=== PATIENT | female | born 1955 | race Caucasian/White ===

== ENCOUNTER 2017-05-07 10:33 | Emergency (ER) | payer BC ==
[2017-05-07 10:52] VITALS: BP 143/89
--- NOTE | 2017-05-07 11:55 | RAD ---
INDICATION: Left hand and wrist pain after a fall COMPARISON: None. TECHNIQUE: 4 views of the left hand and 3 views of the left breast were obtained. FINDINGS: The adequately corticated bones are in normal alignment. No significant focal osseous abnormality or fracture is seen. Joint spaces appear maintained. IMPRESSION: No radiographically apparent fracture or dislocation involving the left hand or wrist. If the patient's symptoms persist, follow-up imaging is recommended.
--- NOTE | 2017-05-07 12:11 | UC ---
Steve Louis Gabriel, scribed for Hoang Tejeda MD on 05/07/17 at 1113 . Upper Extremity HPI - HPI Summary HPI Summary: This patient is a 61 year old F presenting to [facility] s/p fall that occurred on . Pt was walking her dog and it pulled her causing her to fall and landing on her left wrist. She is now having left wrist and hand pain, additionally her ring finger is swollen and she is unable to get her ring off. The patient rates the pain 7/10 in severity. - History of Current Complaint Chief Complaint: UCUpperExtremity Stated Complaint: HAND INJURY Time Seen by Provider: 05/07/17 11:05 Hx Obtained From: Patient Onset/Duration: Lasting Days, Still Present Severity Initially: Severe Severity Currently: Severe Pain Intensity: 7 Pain Scale Used: 0-10 Numeric Associated Signs And Symptoms: Positive: Swelling, Other - pain - Allergies/Home Medications Allergies/Adverse Reactions: Allergies Allergy/AdvReac Type Severity Reaction Status Date / Time No Known Allergies Allergy Verified 05/07/17 10:52 Home Medications: Home Medications Aspirin 1 tab PO DAILY 05/07/17 [History Confirmed 05/07/17] PMH/Surg Hx/FS Hx/Imm Hx Other Cardiovascular History: blood clot Other History Of: Negative For: HIV, Hepatitis B - Surgical History Surgical History: Yes Surgery Procedure, Year, and Place: hysterrectomy; vein stripping left leg (x2, once unsuccesfully) - Family History Known Family History: Negative: Hypertension, Renal Disease, Respiratory Disease, Seizure Disorder - Social History Alcohol Use: Occasionally Substance Use Type: None Smoking Status (MU): Current Some Day Smoker Amount Used/How Often: 10 cigds per week - Immunization History Most Recent Influenza Vaccination: Dec 2013 Most Recent Tetanus Shot: within past 2 yrs Review of Systems Constitutional: Negative - fever Musculoskeletal: Other: - pain and swelling at left hand All Other Systems Reviewed And Are Negative: Yes Physical Exam Triage Information Reviewed: Yes Vital Signs: Initial Vital Signs Temp 98.6 F 05/07/17 10:48 Pulse 60 05/07/17 10:48 Resp 20 05/07/17 10:48 BP 143/89 05/07/17 10:48 Pulse Ox 98 05/07/17 10:48 Vital Signs Reviewed: Yes - Additional Comments General: well-appearing, no pain distress Skin: warm, color reflects adequate perfusion, dry Head: normal Eyes: EOMI, LAUREN ENT: normal Neck: supple, nontender Respiratory: CTA, breath sounds present Cardiovascular: RRR Abdomen: soft, nontender Bowel: present Musculoskeletal: strength/ROM intact. TTP at left wrist ulnar aspect on 4th and 5th metacarpals with swelling Neurological: normal, sensory/motor intact, A&O x3 Psychological: affect/mood appropriate Diagnostics - Radiology wrist xray Radiology Interpretation Completed By: Radiologist - No radiographically apparent fracture or dislocation involving the left hand or wrist. If the patient's symptoms persist, follow-up imaging is recommended. Dr. Tejeda has reviewed this report. hand xray Radiology Interpretation Completed By: Radiologist - No radiographically apparent fracture or dislocation involving the left hand or wrist. If the patient's symptoms persist, follow-up imaging is recommended. Dr. Tejeda has reviewed this report. Upper Extremity Course/Dx - Course Course Of Treatment: BP noted and advised to follow up with PCP. LEFT INDEX FINGER RING REMOVED WITH RING CUTTER BY NURSING - Differential Dx/Diagnosis Provider Diagnoses: LEFT WRIST AND HAND SPRAIN. HTN Discharge - Discharge Plan Condition: Stable Disposition: HOME Patient Education Materials: Splint Care (ED), Hand Sprain (ED), Wrist Sprain ( ED) Referrals: Aubree Love [Primary Care Provider] - Additional Instructions: FOLLOW UP WITH YOUR DOCTOR IF NOT COMPLETELY IMPROVED. GET RECHECKED FOR ANY WORSENING OF YOUR CONDITION OR QUESTIONS OR CONCERNS. Your blood pressure was elevated during todays visit; please follow up with your primary care provider within a week for further evaluation. The documentation as recorded by the Steve jasso Gabriel accurately reflects the service I personally performed and the decisions made by me, Hoang Tejeda MD.
== END 2017-05-07 12:15 | disposition home or self-care (01) ==
LOC: UCEAST 10:33
DX: S63.502A Unspecified sprain of left wrist, initial encounter (principal); S63.92XA Sprain of unspecified part of left wrist and hand, initial encounter; W18.39XA Other fall on same level, initial encounter; Y93.K1 Activity, walking an animal; Y92.9 Unspecified place or not applicable; Z86.718 Personal history of other venous thrombosis and embolism; Z79.82 Long term (current) use of aspirin; Z72.0 Tobacco use
CPT/HCPCS: 99212; G0463

== ENCOUNTER 2018-02-06 13:54 | Emergency (ER) | payer BC ==
[2018-02-06 14:21] VITALS: BP 124/83
--- NOTE | 2018-02-06 14:59 | UC ---
Upper Extremity HPI - HPI Summary HPI Summary: 62-year-old female presents with bilateral wrist pain. States she was working her well, the lid of the well was caught the wind and blown onto her bilateral wrists. Pain is worse in the right wrist and is associated with some bruising. She also has a superficial skin tear to the dorsal right hand. Denies numbness or tingling. - History of Current Complaint Chief Complaint: UCUpperExtremity Stated Complaint: HAND INJURY Hx Obtained From: Patient Onset/Duration: Sudden Onset Severity Currently: Moderate Pain Intensity: 7 Character: Aching Aggravating Factor(s): Movement Alleviating Factor(s): Nothing Associated Signs And Symptoms: Positive: Swelling, Bruising. Negative: Weakness , Numbness/Tingling - Allergies/Home Medications Allergies/Adverse Reactions: Allergies Allergy/AdvReac Type Severity Reaction Status Date / Time No Known Allergies Allergy Verified 02/06/18 14:21 PMH/Surg Hx/FS Hx/Imm Hx Previously Healthy: Yes - Denies significant PMH Other History Of: Negative For: HIV, Hepatitis B - Surgical History Surgical History: Yes Surgery Procedure, Year, and Place: hysterrectomy; vein stripping left leg (x2, once unsuccesfully) - Family History Known Family History: Negative: Hypertension, Renal Disease, Respiratory Disease, Seizure Disorder - Social History Occupation: Works From/At Home Lives: With Family Alcohol Use: Occasionally Substance Use Type: None Smoking Status (MU): Current Some Day Smoker Amount Used/How Often: 10 cigds per week Household Exposure Type: Cigarettes - Immunization History Most Recent Influenza Vaccination: Dec 2013 Most Recent Tetanus Shot: within past 2 yrs Review of Systems All Other Systems Reviewed And Are Negative: Yes Skin: Positive: Bruising Motor: Negative: Weakness Neurovascular: Negative: Decreased Sensation Musculoskeletal: Positive: Other: - See HPI Is Patient Immunocompromised?: No Physical Exam Triage Information Reviewed: Yes Appearance: Well-Appearing, No Pain Distress, Well-Nourished Vital Signs: Initial Vital Signs Temp 98.2 F 02/06/18 14:17 Pulse 74 02/06/18 14:17 Resp 18 02/06/18 14:17 BP 124/83 02/06/18 14:17 Pulse Ox 100 02/06/18 14:17 Respiratory: Positive: Lungs clear, Normal breath sounds, No respiratory distress Cardiovascular: Positive: RRR, No Murmur, Pulses Normal, Brisk Capillary Refill Musculoskeletal: Positive: Strength Intact, ROM Intact, Other: - Mild tenderness mid 1st metacarpal right hand with ecchymosis and mild swelling. No gross deformity. Mild tenderness to distal left radius without erythema, ecchymosis, or swelling. Neurological: Positive: Alert, Other: - Sensation intact distally Skin: Positive: Significant Lesion(s) - See diagram Diagnostics - Radiology No standard instances Radiology Interpretation Completed By: Radiologist Summary of Radiographic Findings: Patient Name: GISSELLE ALMODOVAR Medical Record#: [id number]. Ordering Physician: Scotty Bautista NP Acct.#: [id number]. : 1955 Age: 62 Sex: F Location: [facility]. Exam Date: 1503 ADM Status: REG ER. Order Information: WRISTS BILATERAL. Accession Number: [id number]. CPT: 57283. Indication: Wrist pain. 3 views of the left wrist and 3 views of the right wrist are reviewed. The left wrist demonstrates no fracture or dislocation. No other bone or joint abnormality. is identified. The right wrist demonstrates no fracture or dislocation. No other bone or. joint abnormality is identified. IMPRESSION: No fracture of either wrist is noted. Upper Extremity Course/Dx - Course Course Of Treatment: 62 year old female with bilateral wrist pain after the lid on her well fell onto wrists. Right worse than left. On exam she had tenderness with ecchymosis and swelling over mid right 1st metacarpal without gross deformity, tenderness over distal left radius without ecchymosis, swelling, or gross deformity, and a superficial skin tear to dorsal right hand. X-ray negative for fracture. Recommend conservative treatment for bilateral wrist contusion. She is to follow up with PCP in 7 days if symptoms persistl. Reviewed wound care and warning symptoms with patient. Verbalizes unerstanding and agrees with POC. - Differential Dx/Diagnosis Differential Diagnosis/HQI/PQRI: Contusion, Fracture (Closed), Hematoma, Laceration Provider Diagnoses: Contusion bilateral wrists, skin tear dorsal right hand Discharge - Sign-Out/Discharge Documenting (check all that apply): Patient Departure All imaging exams completed and their final reports reviewed: Yes - Discharge Plan Condition: Stable Disposition: HOME Patient Education Materials: Contusion in Adults (ED) Referrals: Aubree Love [Primary Care Provider] - 7 Days (If symptoms persist.) Additional Instructions: The X-rays of your wrists showed no evidence of fracture. I suspect that you have a contusion (deep bruise) from the injury. Rest your arms as much as possible. Avoid strenuous activity or activity that causes pain. Apply ice to the affected area(s) for 15-20 minutes 3-4 times a day. Elevate your arm(s) to help reduce swelling. Use an over the counter pain medication such as acetaminophen (Tylenol) or ibuprofen (Advil, Motrin) according to directions as needed for pain. Gently clean the skin tear on the back of your right hand with soap and water, apply an antibiotic ointment, and cover with a dressing. Follow up with you primary care provider in 7 days if symptoms persist. Seek immediate medical attention if you develop fever greater than 100.5 F, have pain not managed with pain medication, have redness that spreads, increased swelling, develop numbness or tingling in hand(s) or fingers, or have any worsening of symptoms. - Billing Disposition and Condition Condition: STABLE Disposition: Home Images Hands: 1 - Superficial L-shaped skin tear with edges well approximated. No active bleeding. 2 - Ecchymosis
== END 2018-02-06 16:09 | disposition home or self-care (01) ==
LOC: UCEAST 13:54
DX: S60.212A Contusion of left wrist, initial encounter (principal); S60.211A Contusion of right wrist, initial encounter; S61.411A Laceration without foreign body of right hand, initial encounter; F17.210 Nicotine dependence, cigarettes, uncomplicated; W20.8XXA Other cause of strike by thrown, projected or falling object, initial encounter; Y93.89 Activity, other specified; Y92.9 Unspecified place or not applicable
CPT/HCPCS: 99211; G0463

== ENCOUNTER 2018-08-09 11:49 | Inpatient (IN) | payer BC ==
[2018-08-09] MEDS ORDERED: Morphine 4 MG/ML VIAL (1 ml) 4 MG/ML VIAL IV ONE (12:14)
--- NOTE | 2018-08-09 14:30 | ED ---
Lower Extremity - HPI Summary HPI Summary: 63-year-old female presents with left knee injury today. States that the dog hit her left knee and pushed on the knee. She has history of patellar dislocations. She denies any numbness to me. States felt a snap. She unable to place weight on the area. She denies any hip pain. No ankle pain. she has no medical conditions besides history of phlebitis after previous surgery. States she is in severe pain. - History of Current Complaint Chief Complaint: EDExtremityLower Stated Complaint: LEFT LEG INGURY PER PT Time Seen by Provider: 08/09/18 12:09 Pain Intensity: 8 - Allergies/Home Medications Allergies/Adverse Reactions: Allergies Allergy/AdvReac Type Severity Reaction Status Date / Time No Known Allergies Allergy Verified 08/09/18 11:56 Home Medications: Home Medications Jetmore-3 Fatty Acids/Fish Oil [Jetmore 3] 1 cap PO DAILY 08/09/18 [History Confirmed 08/09/18] PMH/Surg Hx/FS Hx/Imm Hx Endocrine/Hematology History: Denies: Hx Anticoagulant Therapy Respiratory History: Denies: Hx Asthma Musculoskeletal History: Denies: Hx Osteoporosis - Cancer History Hx Chemotherapy: No Hx Radiation Therapy: No - Surgical History Surgery Procedure, Year, and Place: hysterrectomy; vein stripping left leg (x2, once unsuccesfully) Infectious Disease History: No Infectious Disease History: Denies: Hx Clostridium Difficile, Hx Hepatitis, Hx Human Immunodeficiency Virus (HIV), Hx of Known/Suspected MRSA, Hx Shingles, Hx Tuberculosis, Hx Known/ Suspected VRE, Hx Known/Suspected VRSA, History Other Infectious Disease, Traveled Outside the [place] in Last 30 Days - Family History Known Family History: Negative: Hypertension, Renal Disease, Respiratory Disease, Seizure Disorder - Social History Alcohol Use: None Substance Use Type: Reports: None Smoking Status (MU): Current Some Day Smoker Amount Used/How Often: 10 cigds per week Review of Systems Negative: Fever Negative: Chest Pain Negative: Shortness Of Breath Positive: Myalgia - left knee pain All Other Systems Reviewed And Are Negative: Yes Physical Exam Triage Information Reviewed: Yes Vital Signs On Initial Exam: Initial Vitals Temp Pulse Resp BP Pulse Ox 98.1 F 75 16 175/90 98 08/09/18 11:50 08/09/18 11:50 08/09/18 11:50 08/09/18 11:50 08/09/18 11:50 Vital Signs Reviewed: Yes Appearance: Positive: Well-Appearing Skin: Positive: Warm, Dry Head/Face: Positive: Normal Head/Face Inspection Eyes: Positive: Normal, Conjunctiva Clear ENT: Positive: Pharynx normal Respiratory/Lung Sounds: Positive: Clear to Auscultation, Breath Sounds Present Cardiovascular: Positive: Normal, RRR Musculoskeletal: Positive: Limited @ - left knee, Other - tenderness over left knee, edema noted to knee, good pulses Neurological: Positive: Normal Psychiatric: Positive: Normal Diagnostics - Vital Signs Vital Signs Temp Pulse Resp BP Pulse Ox 08/09/18 12:29 18 08/09/18 11:50 98.1 F 75 16 175/90 98 - Laboratory Lab Statement: Any lab studies that have been ordered have been reviewed, and results considered in the medical decision making process. - Radiology knee Radiology Interpretation Completed By: Radiologist Summary of Radiographic Findings: IMPRESSION: #. Mildly impacted lateral tibial plateau fracture with extension to the intercondylar. region. Associated large lipohemarthrosis. Re-Evaluation - Re-Evaluation Second Eval Re-Evaluation Time: 16:30 Comment: pain improved First Eval Re-Evaluation Time: 15:29 Comment: pain returning Lower Extremity Course/Dx - Course Course Of Treatment: 63-year-old female presents with left knee injury today. States that the dog hit her left knee and pushed on the knee. She has history of patellar dislocations. She denies any numbness to me. States felt a snap. She unable to place weight on the area. She denies any hip pain. No ankle pain. she has no medical conditions besides history of phlebitis after previous surgery. States she is in severe pain. On exam has edema nose left knee. Neurovascularly intact. X-ray shows tibia plateau fracture. Consult Dr. Jones who wants to admit patient states that or. Requested consult with dr sandoval for or clearance - Diagnoses Differential Diagnosis/HQI/PQRI: Positive: Fracture (Closed), Sprain, Strain Provider Diagnoses: Tibial plateau fracture Discharge - Sign-Out/Discharge Documenting (check all that apply): Patient Departure Patient Received Moderate/Deep Sedation with Procedure: No - Discharge Plan Condition: Good Disposition: HOME Referrals: Aubree Love [Primary Care Provider] - - Billing Disposition and Condition Condition: GOOD Disposition: Home
[2018-08-09] MEDS ORDERED: oxyCODONE/Acetamin 5/325 MG* TAB PO ONE (15:30)
[2018-08-09] MEDS ORDERED: diPHENhydraMINE IV* 50 MG/ML 1 ml VIAL (BENADRYL) IV PRN (17:23)
[2018-08-09] MEDS ORDERED: Ondansetron INJ* 2 MG/ML VIAL IV PRN (17:23)
[2018-08-09] MEDS ORDERED: Acetaminophen TAB* 325 MG PO PRN (17:23)
[2018-08-09] MEDS ORDERED: Morphine 4 MG/ML VIAL (1 ml) 4 MG/ML VIAL IV PRN (17:23)
[2018-08-09] MEDS ORDERED: NS 0.9% 1000 ML** 1,000 ML IV SCH (17:30)
--- NOTE | 2018-08-09 19:28 | HP ---
HISTORY AND PHYSICAL: DATE OF ADMISSION: 08/09/18. REASON FOR CONSULTATION: Left knee injury. 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 this morning, when she was kno cked over by a dog of hers at home. The patient's past history regarding this left knee is limited to some patellar instability events in the distant past. She has had those bilaterally. The patient fell today and injured her left knee and presented to the emergency room at [facility]. She describes pain about the left knee. No other new complaints from her fall. PAST MEDICAL HISTORY: 1. Bilateral patellar dislocations, distant past. 2. History of a "superficial" venous thrombosis after an inguinal hernia repair surgery, treated wit h a course of aspirin approximately 10 years ago. PAST SURGICAL HISTORY: Left inguinal hernia repair, bilateral lower extremity vein stripping procedu res, surgery for a prolapsed uterus. The patient has had no problems with anesthesia. MEDICATIONS: None with the exception of some omega fatty acids. ALLERGIES: No known drug allergies. SOCIAL HISTORY: The patient lives with her . The patient described she and her as be ing self-employed at home. 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 She denied that it w as cerebral palsy, but cannot clearly articulate a diagnosis. She needs to feed and perform toilet c are for the son. FAMILY HISTORY: Noncontributory. REVIEW OF SYSTEMS: No numbness and tingling. No headache, nausea, vomiting, chest pain, heart palpi tations, shortness of breath. No other joint pain. No diarrhea, vomiting. The patient describes herself as able to easily scale multiple flight of stairs and to walk multiple blocks without any fatigue, chest pain, or shortness of breath. PRIMARY CARE PHYSICIAN: Dr. Trent who did a physical on the patient in February 2018 without any c omplaint or need for further workup. PHYSICAL EXAMINATION GENERAL: No acute distress, alert, and oriented, appropriate mood and affect, appropriate dress and hygiene, well-coordinated bilateral upper and lower extremities. VITAL SIGNS: At 11:50 a.m. this morning were body temperature 98.1 degrees Fahrenheit, heart rate 75 , blood pressure 175/90, respiratory rate 16, and oxygen saturation 98% on room air. The patient has some valgus deformity to the left knee. She is holding it in a flexed position. The re is a pain with passive range of motion of left knee. There is some mild soft tissue swelling abou t the knee and proximal lower leg. The compartments are still soft about the lower leg. The patient does wrinkle anteriorly and laterally. Pulses intact dorsalis pedis and posterior tibialis. Warm an d well perfused distally. Neurovascularly intact distally. IMAGING: X-ray views of the left knee obtained in the emergency room today demonstrated a lateral t ibial plateau fracture with some minimal displacement. Knee was located. CT scan of the left knee wa s ordered under my direction. It demonstrates a comminuted fracture of the lateral tibial plateau. I measured displacement of as much as 5 mm. There is depression most pronounced anteriorly. There is some increased valgus angulation of the knee and I measured 10 degrees of valgus. Described this as a comminuted, split, depression type lateral tibial plateau fracture. ASSESSMENT: Left knee lateral tibial plateau fracture, displaced, comminuted. PLAN: 1. I selvin out the relevant anatomy for the patient and her . I explained that because I had measured 5 mm of depression anteriorly, the patient had met the threshold for surgical indication for this injury. 2. I explained various approaches that could be taken to this injury. As the patient is already 63 and is likely to develop arthritis either way, with or without surgery, the patient could be treated nonoperatively and wait and treat arthritis as needed with a total knee arthroplasty. However, I do worry that the patient would develop even more valgus angulation of the knee and even with this amoun t of valgus angulation, her advance towards arthritis could be rapid. 3. Given the patient meets criteria for surgery, I did recommend surgery. 4. The patient clearly has many difficult social obligations including caring for her adult son. I described a long period of limited weightbearing after this injury whether treated nonoperatively or operatively and prepared the patient and her for the significant social repercussions that th is injury will have. 5. The patient has been n.p.o. since early this morning, sometime between 6 and 8 a.m. being her las t food and drink besides a sip of water in the emergency room. 6. We discussed there being a window before too much soft tissue swelling develops about the knee, l ack of wrinkles that then precludes performing surgery without a high risk for wound healing. We con sidered doing this case tonight; however, due to some additional surgeries going on in emergency surg amina, I decided to schedule the surgery for the morning of 08/10/18, first thing. The patient will be admitted to my service preoperatively for significant left lower extremity elevation, 4 pillows, way above her heart along with significant icing through the night to minimize any accumulation of soft tissue and maximize the opportunity for safe wound healing postoperatively. 7. The patient will be seen by the hospitalist service, with stat priority, in the emergency room, t o make sure the patient is optimized and cleared for surgery. Given her lack of medical problems and her excellent tolerance, I anticipate that there will not be any difficulties or need for further mariajose ting, but I defer to the excellent judgement of the hospitalist service. [id number]/[facility] #: [id number]
[2018-08-09 19:39] LABS: ABS Eosinophils 0.1 10^3/ul (0-0.6); ABS Lymphocytes 1.3 10^3/ul (1.0-4.8); ABS Monocytes 0.6 10^3/ul (0-0.8); ABS Neutrophils 4.1 10^3/ul (1.5-7.7); Eosinophil % 1.7 %; Hematocrit 40 % (35-47); Hemoglobin 13.7 g/dL (12.0-16.0); Lymphocyte % 21.1 %; Mean Corpuscular HGB Conc 34 g/dL (31-36); Mean Corpuscular Hemoglobin 31 pg (27-31); Mean Corpuscular Volume 91 fL (80-97); Mean Platelet Volume 8.6 fL (7.4-10.4); Nucleated Red Blood Cells % 0.1; Platelet Count 131 10^3/uL (150-450); Red Blood Count 4.38 10^6 /uL (3.70-4.87); Red Cell Distribution Width 13 % (10.5-15); White Blood Count 6.1 10^3/uL (3.5-10.8)
[2018-08-09 19:57] LABS: BUN/Creatinine Ratio 15.6 (8-20); Calcium 9.2 mg/dL (8.6-10.3); EGFR African American 91.9 (>60); Potassium 3.8 mmol/L (3.5-5.0)
--- NOTE | 2018-08-09 20:26 | CONS ---
CC: Dr. Vandana Trent; Dr. Williams Vizcaino; Dr. Julio Polo* CONSULTATION REPORT: DATE OF CONSULT: 08/09/18 PRIMARY CARE PROVIDER: Dr. Vandana Trent. CONSULTING PROVIDER: Dr. Williams Vizcaino. MY ATTENDING WHILE IN THE HOSPITAL: Dr. Julio Polo. REASON FOR CONSULT: Preop evaluation. CHIEF COMPLAINT: Knee trauma. HISTORY OF PRESENT ILLNESS: Ms. Olvera is a 63-year-old female with a past medical history significant for nephrolithiasis, back pain, and previously diagnosed osteoporosis and osteopenia, who presents to the emergency department after she was feeling in her normal state of health ever since she had a cold 1 month ago. She has been very active. She has lost over 30 pounds since she has been working more with her family's business intentionally. She has good appetite. No shortness of breath with exertion. The patient denies chest pain or shortness of breath. The patient did not fall or hit her head. The patient denies fevers or chills. No numbness or tingling in the affected extremity. The patient's pain is minimal while sitting still and severe with exertion. The patient's only chronic medication is omega-3 fatty acids. The patient in the emergency department was found to have a tibial plateau fracture of the right tibia. The patient was admitted by Dr. Williams Vizcaino for presumed surgical fixation and we were asked to evaluate the patient for preoperative risk stratification. PAST MEDICAL HISTORY: Nephrolithiasis, bladder infections, back pain, thrombophlebitis, varicose veins, hyperlipidemia, osteoporosis. PAST SURGICAL HISTORY: Hysterectomy, tubal ligation, inguinal hernia repair, bladder prolapse repair, superficial lower extremity vein stripping. MEDICATIONS: MegaRed 1 tab p.o. daily. ALLERGIES: No known drug allergies. FAMILY HISTORY: The patient's father of cirrhosis. The patient's mother is a colon cancer survivor and has hypertension. The patient has a sister who is alive and well and a son who has a physical disability. SOCIAL HISTORY: The patient smokes 2 to 3 cigarettes a day. The patient drinks occasional alcohol. The patient denies any illicit drug use. 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 The patient is and has 1 child. The patient's surrogate decision maker will be her , Alex Olvera. REVIEW OF SYSTEMS: A 14-point review of systems was reviewed and is negative except as above in the HPI. PHYSICAL EXAM: General: The patient is a 63-year-old female, who appears her stated age and sitting comfortably in bed, in no acute distress. Vital Signs: At the time of evaluation, temperature 98.6, pulse rate 70, respiratory rate 16 , oxygen saturation 98% on room air, blood pressure 164/79. HEENT: Head normocephalic, atraumatic. Sclerae anicteric. No conjunctival injection. Nasal mucosa moist. Oral mucosa moist. No oropharyngeal erythema, discharge, or exudate. Neck: Supple, nontender. No lymphadenopathy. No carotid bruits auscultated. No JVD. Cardiac: Regular rate and rhythm. No clicks, murmurs, gallops, or rubs. Pulses are 2+ in the bilateral dorsalis pedis, posterior tibialis, and radial areas. Respiratory: Clear to auscultation bilaterally. No wheezes, rales, or rhonchi. Good air exchange bilaterally. Abdomen: Soft, nontender, nondistended. Bowel sounds present and normoactive in all 4 quadrants. No hepatosplenomegaly. No abdominal bruits auscultated. No hepatojugular reflux. Genitourinary: No suprapubic or CVA tenderness. Skin: Bruising around the left knee. No other rashes or ulcers except for varicose veins in the bilateral lower extremities. Musculoskeletal: Pain with even minor manipulation of the left lower extremity. The patient moves all other extremities equally without focal deficits. Neuro: Cranial nerves II through XII intact. No focal deficits. Alert and oriented x3. Psychiatric: Pleasant and cooperative. DIAGNOSTIC STUDIES/LAB DATA: Laboratory data: None obtained today. Studies: Femur x-ray from 08/09/18 read as mildly impacted lateral tibial plateau fracture with extension to the intercondylar region, associated large lipohemarthrosis. Knee x-ray read as same. Lower extremity CT read as moderately comminuted fracture of the lateral tibial plateau with extension to the intercondylar region up to 0.6 cm depression in the articular surface anteriorly involving the area measuring up to approximately 1.4 cm AP x 1.7 cm transverse secondary to impaction, associated grossly nondisplaced comminuted intraarticular through proximal metaphyseal fracture of the fibula. No fracture of the distal femur evident. Normal articular alignment. Large lipohemarthrosis with diffuse skeletal muscle atrophy. Negative for popliteal fossa or superior soft tissue plane hematoma. Varicose veins noted. ASSESSMENT AND PLAN: Impression: Ms. Olvera is a 63-year-old female with past medical history significant for hyperlipidemia, osteoporosis and nephrolithiasis , who presents to the emergency department after a trauma from her dog hitting the lateral aspect of her knee with immediate pain and was found to have a tibial plateau fracture. The patient has no other past medical history and will be admitted to the hospital for anticipation of surgery to repair her fracture. 1. Tibial plateau fracture. Management per Orthopedics. The patient will be n.p.o. after midnight. The patient will have fluids. During this time, the patient will have pain control with Percocet and morphine. The patient has no up- to-date lab work. The patient is an active smoker and has borderline high cholesterol. We will obtain an EKG preoperatively for risk stratification to rule out any possible ischemic features, though the patient is not having chest pain at this time. We will also order lab work to rule out significant chronic kidney disease or other gross metabolic derangement. Assuming no grossly abnormal values are found, the patient's RCRI will be 0 and the patient will be a low risk for this moderate risk procedure. The patient is capable of more than 4 METs and no further testing will be indicated. 2. Osteoporosis. The patient from a previous DEXA scan from 2012 has osteopenia in her radius and osteoporosis in her lumbar spine. The patient should follow up with her primary care provider regarding these results, further screening and we would recommend initiation of treatment after an appropriate time period has passed from her fracture. The patient should also have age-appropriate screening for vitamin D levels and should have calcium and vitamin D supplementation as indicated. 3. Hyperlipidemia. The patient is on no medications for this. Follow up routinely outpatient. 4. History of bladder infection. The patient has no current concern for urinary tract infection. 5. Tobacco abuse. The patient will have nicotine replacement while in the hospital. 6. FEN: The patient will be n.p.o. after midnight. The patient will have a regular unrestricted diet until that point. The patient will have fluids at 100 mL an hour per Orthopedics. 7. Disposition: Per Orthopedics, the patient is admitted to inpatient. TIME SPENT: Approximately 45 minutes was spent on this consultation, 30 of which was spent [id number] with the patient obtaining history and physical and discussing the treatment plan. This plan was discussed with my attending, Dr. Julio Polo, and he is in agreement. LAHAJI WASHINGTON [id number]/[facility] #: [id number] FABRIZIO
[2018-08-09] MEDS: oxyCODONE/Acetamin 5/325 MG* TAB PO PRN (21:41)
[2018-08-10] MEDS: oxyCODONE/Acetamin 5/325 MG* TAB PO PRN ×3 (03:48→17:34)
--- NOTE | 2018-08-10 06:30 | PN ---
Progress Note - Progress Note Date of Service: 08/10/18 SOAP: Subjective: Pain controlled by meds. Elevation and ice to LLE overnight. Anticoagulation not started given surgery today. Hospitalist saw the patient yesterday and wrote that she would be cleared barring any basic lab abnormalities. Objective: LLE: - mild swelling knee and proximal lower leg - wrinkling is present of knee and lower leg laterally - NVID Selected Entries 08/10/18 03:32 Temperature 98.9 F Pulse Rate 82 Respiratory 16 Rate Blood Pressure 130/68 (mmHg) O2 Sat by Pulse 94 Oximetry Laboratory Tests 08/09/18 19:34 WBC 6.1 Assessment: HD 2 displaced left tibial plateau fracture Plan: - to the OR for ORIF left lateral tibial plateau fracture - Has been NPO post midnight - Hospitalist can write " cleared" this AM after a review of normal labs
[2018-08-10] MEDS ORDERED: ceFAZolin 2 GM PREMIX in ORs 2 GM/50 ML BAG IVPB ONE ×2 (06:54→07:20)
--- NOTE | 2018-08-10 07:03 | PN ---
Hospitalist Progress Note Date of Service: 08/10/18 Patient has no signs of current or prior ischemia on EKG and no laboratory abnormalities that would preclude or alter patient's operative risk. Patient is medically optimized for the planned surgery with no further testing or intervention needed.
[2018-08-10] MEDS ORDERED: fentaNYL* 50 MCG/ML 2 ML VIAL (100 MCG VIAL) ONE ×4 (07:15→11:14)
[2018-08-10] MEDS ORDERED: Midazolam* 1 MG/ML 2 ML VIAL (2 MG) ONE (07:15)
[2018-08-10] MEDS ORDERED: EPINEPHRINE 1 MG/ML 1 ML VIAL ONE (07:26)
[2018-08-10] MEDS ORDERED: Bupivacaine 0.5% W/EPI SDV* 30 ML VIAL ONE (07:26)
[2018-08-10] MEDS ORDERED: Famotidine IV* 10 MG/ML 2 ML (20 mg) ONE (07:44)
[2018-08-10] MEDS ORDERED: Propofol* 10 MG/ML 20 ML BTL ONE (07:58)
[2018-08-10] MEDS ORDERED: Dexamethasone IV* 4 MG/ML 1 ML (4 MG) ONE (07:58)
[2018-08-10] MEDS ORDERED: Rocuronium* 10 MG/ML VIAL ONE (07:58)
[2018-08-10] MEDS ORDERED: EPHEDrine (Pressors)* 50 MG/ML VIAL ONE (08:17)
[2018-08-10] MEDS ORDERED: Buffered Lidocaine 1% SYRIN* 1 ML/SYRINGE INTRADERM ONE (08:37)
[2018-08-10] MEDS ORDERED: DiMENhydriNATE IV* 50 MG/ML VIAL IV PUSH PRN (08:39)
[2018-08-10] MEDS ORDERED: PROCHLORPERAZINE INJ 5 MG/ML 2 ML VIAL IV PRN (08:39)
[2018-08-10] MEDS ORDERED: Levalbuterol 0.63MG/3ML NEB* UNIT OF USE INH PRN (08:39)
[2018-08-10] MEDS ORDERED: Acetaminophen TAB* 325 MG PO PRN (08:39)
[2018-08-10] MEDS ORDERED: Naloxone* 0.4 MG/ML 1 ML VIAL IV PRN (08:39)
[2018-08-10] MEDS ORDERED: Lactated Ringers 1000 ML Bag* 1,000 ML IV SCH (09:00)
[2018-08-10] MEDS ORDERED: Ketorolac INJ* 30 MG/ML 1 ML VIAL ONE (09:56)
[2018-08-10] MEDS ORDERED: Magnesium Hydroxide LIQ* 30 ML UDC PO PRN (10:42)
[2018-08-10] MEDS ORDERED: DiMENhydriNATE IV* 50 MG/ML VIAL ONE (11:03)
[2018-08-10] MEDS: fentaNYL* 50 MCG/ML 2 ML VIAL (100 MCG VIAL) IV PRN ×2 (11:15→11:50)
[2018-08-10] MEDS: Lactated Ringers 1000 ML Bag* 1,000 ML IV SCH ×2 (13:20→22:22)
--- NOTE | 2018-08-10 13:51 | PN ---
Subjective Date of Service: 08/10/18 Interval History: Patient examined postoperative. Patient states pain in leg is 6/10. Patient denies paresthesia distal to surgery. Patient denies CP, SOB, F/C, N/V, abdominal pain, diarrhea, or other pain. Family History: Unchanged from Admission Social History: Unchanged from Admission Past Medical History: Unchanged from Admission Objective Active Medications: Acetaminophen (Tylenol Tab*) 650 mg PO Q6H PRN PRN Reason: FEVER/HEADACHE Acetaminophen (Tylenol Tab*) 650 mg PO ONCE PRN PRN Reason: PAIN - MILD Dimenhydrinate (Dramamine Iv*) 25 mg IV PUSH ONCE PRN PRN Reason: NAUSEA/VOMITING Last Admin: 08/10/18 11:04 Dose: 25 mg Diphenhydramine HCl (Benadryl Iv*) 25 mg IV Q6H PRN PRN Reason: PRURITIS Fentanyl Citrate (Fentanyl*) 50 mcg IV Q5M PRN PRN Reason: PAIN - MODERATE Last Admin: 08/10/18 11:50 Dose: 50 mcg Sodium Chloride (Ns 0.9% 1000 Ml) 1,000 mls @ 100 mls/hr IV PER RATE [facility] Last Admin: 08/09/18 21:43 Dose: 100 mls/hr Lactated Ringer's (Lactated Ringers 1000 Ml Bag*) 1,000 mls @ 125 mls/hr IV PER RATE [facility] Last Admin: 08/10/18 13:22 Dose: 125 mls/hr Cefazolin Sodium 1 gm/ Sodium (Chloride) 50 mls @ 200 mls/hr IVPB Q8H [facility] Stop: 08/11/18 08:14 Levalbuterol HCl (Xopenex 0.63mg/3ml Neb*) 0.63 mg INH ONCE PRN PRN Reason: SOB/WHEEZING Lidocaine/Sodium Bicarbonate (Buffered Lidocaine 1% Syrin*) 0.2 ml INTRADERM ONCE ONE Stop: 08/10/18 08:38 Last Admin: 08/10/18 10:52 Dose: Not Given Magnesium Hydroxide (Milk Of Magnesia Liq*) 30 ml PO BID [facility] Magnesium Hydroxide (Milk Of Magnesia Liq*) 30 ml PO Q6H PRN PRN Reason: constipation Morphine Sulfate (Morphine 4 Mg/Ml Vial (1 Ml)) 4 mg IV Q4H PRN PRN Reason: PAIN - SEVERE Last Admin: 08/09/18 18:25 Dose: 4 mg Naloxone HCl (Narcan*) 0.08 mg IV Q2M PRN PRN Reason: severe induced resp depression Ondansetron HCl (Zofran Inj*) 4 mg IV Q6H PRN PRN Reason: NAUSEA Oxycodone/Acetaminophen (Percocet 5/325 Tab*) 1 tab PO Q4H PRN PRN Reason: PAIN - MILD Last Admin: 08/10/18 03:48 Dose: 1 tab Oxycodone/Acetaminophen (Percocet 5/325 Tab*) 2 tab PO Q4H PRN PRN Reason: PAIN - MODERATE Last Admin: 08/10/18 13:28 Dose: 2 tab Prochlorperazine Edisylate (Compazine Inj*) 5 mg IV ONCE PRN PRN Reason: NAUSEA/VOMITING Vital Signs - 8 hr 08/10/18 08/10/18 08/10/18 06:00 10:42 10:45 Temperature 98.4 F Pulse Rate 105 105 Respiratory 16 17 20 Rate Blood Pressure 126/81 117/71 (mmHg) O2 Sat by Pulse 93 93 Oximetry 08/10/18 08/10/18 08/10/18 10:50 10:55 11:00 Temperature Pulse Rate 101 104 100 Respiratory 18 19 18 Rate Blood Pressure 121/67 115/83 126/85 (mmHg) O2 Sat by Pulse 93 94 95 Oximetry 08/10/18 08/10/18 08/10/18 11:05 11:15 11:30 Temperature 98.1 F Pulse Rate 101 98 Respiratory 15 17 Rate Blood Pressure 124/85 138/93 (mmHg) O2 Sat by Pulse 95 94 Oximetry 08/10/18 08/10/18 08/10/18 11:31 11:45 11:50 Temperature Pulse Rate 91 90 Respiratory 15 14 16 Rate Blood Pressure 126/83 131/90 (mmHg) O2 Sat by Pulse 95 96 Oximetry 08/10/18 08/10/18 08/10/18 12:00 12:15 12:30 Temperature Pulse Rate 87 86 86 Respiratory 12 14 14 Rate Blood Pressure 132/74 137/83 143/83 (mmHg) O2 Sat by Pulse 96 96 97 Oximetry 08/10/18 08/10/18 08/10/18 13:00 13:07 13:28 Temperature 98.6 F 98.7 F Pulse Rate 95 Respiratory 18 18 Rate Blood Pressure 147/81 (mmHg) O2 Sat by Pulse 95 Oximetry 08/10/18 08/10/18 13:34 13:37 Temperature Pulse Rate Respiratory 18 18 Rate Blood Pressure (mmHg) O2 Sat by Pulse Oximetry Oxygen Devices in Use Now: None Appearance: Patient is a 63yo female who appears stated age and is sitting in the bed in NAD. Eyes: No Scleral Icterus, PERRLA Ears/Nose/Mouth/Throat: NL Teeth, Lips, Gums, Clear Oropharnyx, Mucous Membranes Moist Neck: NL Appearance and Movements; NL JVP, Trachea Midline Respiratory: Symmetrical Chest Expansion and Respiratory Effort, Clear to Auscultation Cardiovascular: NL Sounds; No Murmurs; No JVD, RRR, No Edema Abdominal: NL Sounds; No Tenderness; No Distention, No Hepatosplenomegaly Lymphatic: No Cervical Adenopathy Extremities: No Edema, No Clubbing, Cyanosis Skin: No Nodules or Sclerosis, - - Left leg covered in a bulky dressing. Neurological: Alert and Oriented x 3, NL Sensation, NL Muscle Strength and Tone , - - CN II-XII intact. Result Diagrams: 08/09/18 19:34 08/09/18 19:34 Assess/Plan/Problems-Billing Assessment: Patient is a 63yo female with a PMH only for osteoporosis, borderline HLD who presents after a traumatic left tibial plateau fracture and is post-operative and doing well. - Patient Problems (1) Tibial plateau fracture Current Visit: Yes Status: Acute Code(s): S82.143A - DISPLACED BICONDYLAR FRACTURE OF UNSP TIBIA, INIT SNOMED Code(s): 828410435 Comment: - Management Per Orthopedics - S/P ORIF, no surgical complications - Pain control, Bowel Regimen, Monitor H/H - Will need PT/OT and brace. (2) Osteoporosis Current Visit: Yes Status: Acute Code(s): M81.0 - AGE-RELATED OSTEOPOROSIS W /O CURRENT PATHOLOGICAL FRACTURE SNOMED Code(s): 19053146 Comment: - DEXA from 2012 shows osteoporosis, will need outpatient F/U and possible treatment - Check Vitamin D level and supplement if needed. (3) DVT prophylaxis Current Visit: Yes Status: Acute Code(s): Z29.9 - ENCOUNTER FOR PROPHYLACTIC MEASURES, UNSPECIFIED SNOMED Code(s): 926011766 (4) Full code status Current Visit: Yes Status: Acute Code(s): Z78.9 - OTHER SPECIFIED HEALTH STATUS SNOMED Code(s): 043671444 Status and Disposition: Disposition Per Orthopedics. We will sign off, please feel free to call with questions. Thank you for this consult.
--- NOTE | 2018-08-10 14:18 | OP ---
OPERATIVE REPORT: DATE OF OPERATION: 08/10/18 DATE OF : 57 SURGEON: Williams Vizcaino MD SR. MEDIA MANAGER: ALHAJI Murillo A physician grants and contracts assistant was required for the length of procedure for assistance with the patient's posi tioning, retraction, instrumentation, and closure. ANESTHESIOLOGIST: Dr. Inderjit Bruce. ANESTHESIA: General anesthesia, local anesthesia with 10 cc of 0.5% Marcaine with epinephrine. PRE-OP DIAGNOSIS: Left knee tibial plateau fracture, lateral, displaced. POST-OP DIAGNOSIS: Left knee tibial plateau fracture, lateral, displaced. OPERATIVE PROCEDURE: Open reduction and internal fixation of left lateral tibial plateau fracture wi th lateral locking plate. ANTIBIOTICS: Ancef 2 g IV. IV FLUIDS: 900 cc crystalloid. TOURNIQUET TIME: 120 minutes at 300 mmHg, left thigh. [id number]-GO-[id number] TIME: 117 minutes. SPECIMEN: None. IMPLANTS: Synthes 3.5 mm left tibial plateau lateral locking plate, multiple 3.5 mm locking screws a nd 1 nonlocking 3.5 mm screw placed through the plate. The plate was the shortest available. A shor t angle contour. COMPLICATIONS: None. ESTIMATED BLOOD LOSS: Minimal. 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 on the morning of . The patient had no prior history with the left knee besides multiple patella dislocation incidents bi lateral knees. X-ray and CT scan showed a displaced lateral tibial plateau fracture. I examined the patient in the emergency room and she had some mild soft tissue swelling at that point, but wrinkled with examinatio n of the skin. Therefore, I thought that the patient could have surgery prior to the development of significant soft tissue swelling, which then can delay the surgery for as long as 2 weeks post injury . Therefore, I admitted the patient for operative management. As it would have been the nighttime when the surgery was done, I delayed the surgery until 08/10/18 in the morning. I admitted the patient f or pain control. We elevated the left lower extremity under 4 pillows well above the heart. The pat ient's left knee and lower leg were iced throughout the night. IV and oral pain medications utilized by the patient. Discussed risks and potential complications of surgery with the patient, in particular described the possibility of wound breakdown, future knee osteoarthritis, future need for knee arthroplasty surgery . DESCRIPTION OF PROCEDURE: On the floor this morning, the patient signed a written consent for the roxy longoria. The patient's left knee was initialed by me. The patient had been n.p.o. after midnight an d was cleared and optimized by the hospitalist service. The patient was brought to preop holding and was then brought to the operating room. The patient was placed on a radiolucent table. Corinna bumps placed under the left hemipelvis. Tourniquet was plac ed around the left proximal thigh. Left lower extremity was prepped and draped. Formal surgical ida e-out performed. Esmarch applied and tourniquet elevated to 300 mmHg. Bone film placed. I made a standard slightly curved S incision of the skin for the lateral approach to the proximal tib ia. I continued dissection down to the fascia layer. I made a fascial incision inline with the skin incision. I mobilized muscle off of bone along the le ngth of the proximal tibia. I respected the knee joint at this point still. Irrigation. Fracture lines were clearly visible with some displacement at first. The more anterior of the 2 larg e proximal fragments were not very mobile to manipulation at first, but the more posterior fragment w as mobile. CT scan had shown a split depression type injury. I wanted to improve the displacement of the large split fragments, but also improve the more focal area of depression, central anterior, in that latera l tibial plateau. I made a submeniscal arthrotomy laterally, careful to respect the meniscus. We removed blood from th e joint. Irrigation of the joint. I considered a window at this point, but instead decided to book open the more anterior of the 2 larg e fragments. I released some soft tissue and booked open that more anterior fragment. That actually enabled me to easily access the piece of bone that had been tamped down. I was able to just push th at backup and reduce that fragment. There was not a significant area of defect, so no cancellous all ograft was required. I had that available in the room to use as needed. I reduced the bony fragments with my hands. I then placed multiple K-wires, 1.6 mm and 2 mm across t he fracture sites, multiple fracture lines. C-arm was brought in and showed excellent reduction. Mo re importantly visibly, looking inside the joint and outside the joint, I liked my reduction, seemed anatomic. I picked the shortest lateral locking plate. Put it in place. It was clearly not too proximal. Pin mian it in place, confirmed its location with x-ray imaging. I then placed screws in the plate. I started with nonlocking screws proximally and distally. This s ucked the plate nicely to bone. I then filled the plate with locking screws. I left 1 screw nonlock ing the one that was in the distal oval- shaped hole. I filled all the proximal holes with the excep tion of the most posterior of the most proximal row. I took final x-ray images. The distal most screw looked a little short, so I used the polyaxial natu re of the guide to aim that screw more posterior and I was able to put a longer screw in. Irrigation. I used a 7 mm drain from a JAKOB set, placed that in the anterior compartment and took it through the sk in. Hooked it up to a hemostat eventually. I closed the fascial layer with multiple [id number] stitches using Vicryl 0 suture. It should b e noted that the plate was covered up except for the most proximal extent to the plate, the fascia wa s unable to be reapproximated just because of over tightness, as well the iliotibial band had a rent perpendicular to its fibers at about that level. I closed what was able to be closed. Irrigation. I closed the subcutaneous layer with very simple stitches using Vicryl 2.[address]. [address] aced multiple deeper subcutaneous stitches as well at the level where there had been no fascial reapp roximation. Ghazal. A local anesthesia was then placed into the subcutaneous tissues about the skin incision. Xeroform, 4x4s, ABDs, sterile Webril, Keaton bandage from foot to proximal thigh. Cooling unit and knee immobilizer placed. The patient was awakened and extubated. DISPOSITION: The patient was readmitted postoperatively for pain control and physical therapy. Read mitted to my service. The patient will start Lovenox 40 mg subcu daily x4 weeks on postoperative day 1 in the morning. She will be on IV antibiotics for 24 hours postoperatively, 1 g Ancef IV q.8 hour s. Pain control oral and IV. She will be nonweightbearing left lower extremity with the exception o f she can be toe touch weightbearing in the knee immobilizer for transfers. She was placed in a knee immobilizer. However, we also got a hinged knee brace available. We will transition the patient in to that prior to her discharge home, but will let her remain in the knee immobilizer for now. We kristian l make sure the patient's left lower extremity is elevated on 4 pillows for approximately 4 days post operatively to enable good wound site healing. The drain will be pulled on postoperative day 1 or 2 when the drainage goes down. I will see her in clinic 10 to 14 days postoperatively, although the st aples may remain for 3 to 4 weeks postoperatively. I will discuss starting to move that knee, get ra nge of motion, prior to the patient's discharge from hospital. Normally at 2 to 3 days postoperative , I start talking to the patients about range of motion exercises with physical therapy. [id number]/[facility] #: [id number]
[2018-08-10 14:28] LABS: Vitamin D Total 25(OH) 17.5 ng/mL (20-50)
[2018-08-10] MEDS: ceFAZolin 1 GM ADVAN(*) 1 GM in NS 0.9% 50 ML* 50 ML IVPB SCH (15:33)
[2018-08-10] MEDS: Cholecalciferol TAB* 1000 UNITS PO SCH (15:33)
[2018-08-10] MEDS: Magnesium Hydroxide LIQ* 30 ML UDC PO SCH (20:38)
[2018-08-11] MEDS: ceFAZolin 1 GM ADVAN(*) 1 GM in NS 0.9% 50 ML* 50 ML IVPB SCH ×2 (00:11→08:03)
[2018-08-11] MEDS: oxyCODONE/Acetamin 5/325 MG* TAB PO PRN ×5 (00:26→21:47)
[2018-08-11] MEDS: Lactated Ringers 1000 ML Bag* 1,000 ML IV SCH (06:24)
[2018-08-11] MEDS: Magnesium Hydroxide LIQ* 30 ML UDC PO SCH ×2 (08:03→19:13)
[2018-08-11] MEDS: Enoxaparin(*) 40 MG/0.4 ML SYR SUBCUT SCH (08:03)
[2018-08-11] MEDS: Cholecalciferol TAB* 1000 UNITS PO SCH (08:03)
--- NOTE | 2018-08-11 10:36 | PN ---
Progress Note - Progress Note Date of Service: 08/11/18 SOAP: Subjective: Pain decreased. No complaints. Objective: LLE: - Dressing c/d/i - NVID Minimal output in Hemovac. It has not been emptied postop. Selected Entries 08/11/18 07:12 Temperature 98.8 F Pulse Rate 85 Respiratory 18 Rate Blood Pressure 135/65 (mmHg) O2 Sat by Pulse 94 Oximetry Laboratory Tests 08/09/18 19:34 25-OH Vitamin D Total 17.5 L Assessment: POD 1 ORIF left tibial plateau fracture Plan: - NWB LLE except TTWB with transfers - We pulled the drain today - Ancef x 24 hours postop - Pain control - Dressing change tomorrow and perhaps discharge - Dispo planning. Patient will need VNS for PT at home for ROM of left knee. - PT to start ROM exercises tomorrow prior to discharge - Vit D level below 40. I will supplement with Vitamin D 5,000 daily x 3 months
[2018-08-11 14:58] LABS: Urine Appearance Clear; Urine Bacteria Absent (Absent); Urine Bilirubin Negative (Negative); Urine Blood 1+ (Negative); Urine Color Yellow; Urine Glucose Negative (Negative); Urine Ketones Negative (Negative); Urine Nitrite Negative (Negative); Urine Protein Negative (Negative); Urine Red Blood Cell 2+(6-10/hpf) (Absent); Urine Squamous Epithelial Cell Present (Absent); Urine Urobilinogen Negative (Negative); Urine White Blood Cell 2+(11-20/hpf) (Absent)
[2018-08-12] MEDS: oxyCODONE/Acetamin 5/325 MG* TAB PO PRN ×4 (06:48→21:50)
[2018-08-12] MEDS ORDERED: Polyethylene Glycol 3350* 17 GM PACKET PO PRN (08:06)
[2018-08-12] MEDS ORDERED: Senna TAB PO PRN (08:06)
[2018-08-12] MEDS: Magnesium Hydroxide LIQ* 30 ML UDC PO SCH ×2 (09:30→21:47)
[2018-08-12] MEDS: Enoxaparin(*) 40 MG/0.4 ML SYR SUBCUT SCH (09:30)
[2018-08-12] MEDS: Cholecalciferol TAB* 1000 UNITS PO SCH (09:30)
[2018-08-12] MEDS: Docusate CAP* 100 MG PO SCH ×2 (09:30→21:48)
--- NOTE | 2018-08-12 10:22 | PN ---
Progress Note - Progress Note Date of Service: 08/12/18 SOAP: Subjective: Pain decreased. Objective: LLE: - inc. c/d/i, mild swelling about knee and lower leg - NVID Selected Entries 08/12/18 07:22 Temperature 99.0 F Pulse Rate 94 Respiratory 18 Rate Blood Pressure 133/67 (mmHg) O2 Sat by Pulse 91 Oximetry Laboratory Tests 08/11/18 12:12 Urine Nitrate Negative Ur Leukocyte Esterase 2+ A Urine Bacteria Absent Assessment: POD 2 ORIF L knee lateral tibia plateau fracture Plan: - Lovenox x 4 weeks postop - Percocet prn - PT - NWB LLE except for TTWB with transfers with knee in brace locked in extension - Patient can work on ROM knee up to 0-90 flexion. Brace is in place unlocked. - Dispo planning. Will need home PT and nursing.
--- NOTE | 2018-08-13 07:43 | PN ---
Progress Note - Progress Note Date of Service: 08/13/18 SOAP: Subjective: resting comfortably with minimal complaints of pain Objective: Vital Signs Temp Pulse Resp BP Pulse Ox 98.4 F 80 18 121/56 95 08/13/18 03:41 08/13/18 03:41 08/13/18 03:41 08/13/18 03:41 08/13/18 03:51 Laboratory Last Values WBC 6.1 10^3/uL (3.5-10.8) 08/09/18 19:34 RBC 4.38 10^6 /uL (3.70-4.87) 08/09/18 19:34 Hgb 13.7 g/dL (12.0-16.0) 08/09/18 19:34 Hct 40 % (35-47) 08/09/18 19:34 MCV 91 fL (80-97) 08/09/18 19:34 MCH 31 pg (27-31) 08/09/18 19:34 MCHC 34 g/dL (31-36) 08/09/18 19:34 RDW 13 % (10.5-15) 08/09/18 19:34 Plt Count 131 10^3/uL (150-450) L 08/09/18 19:34 MPV 8.6 fL (7.4-10.4) 08/09/18 19:34 Neut % (Auto) 67.6 % 08/09/18 19:34 Lymph % (Auto) 21.1 % 08/09/18 19:34 Morris % (Auto) 9.1 % 08/09/18 19:34 Eos % (Auto) 1.7 % 08/09/18 19:34 Baso % (Auto) 0.5 % 08/09/18 19:34 Absolute Neuts (auto) 4.1 10^3/ul (1.5-7.7) 08/09/18 19:34 Absolute Lymphs (auto) 1.3 10^3/ul (1.0-4.8) 08/09/18 19:34 Absolute Monos (auto) 0.6 10^3/ul (0-0.8) 08/09/18 19:34 Absolute Eos (auto) 0.1 10^3/ul (0-0.6) 08/09/18 19:34 Absolute Basos (auto) 0.0 10^3/ul (0-0.2) 08/09/18 19:34 Absolute Nucleated RBC 0.0 10^3/ul 08/09/18 19:34 Nucleated RBC % 0.1 08/09/18 19:34 Sodium 140 mmol/L (135-145) 08/09/18 19:34 Potassium 3.8 mmol/L (3.5-5.0) 08/09/18 19:34 Chloride 108 mmol/L (101-111) 08/09/18 19:34 Carbon Dioxide 27 mmol/L (22-32) 08/09/18 19:34 Anion Gap 5 mmol/L (2-11) 08/09/18 19:34 BUN 12 mg/dL (6-24) 08/09/18 19:34 Creatinine 0.77 mg/dL (0.51-0.95) 08/09/18 19:34 Est GFR ( Amer) 91.9 (>60) 08/09/18 19:34 Est GFR (Non-Af Amer) 76.0 (>60) 08/09/18 19:34 BUN/Creatinine Ratio 15.6 (8-20) 08/09/18 19:34 Glucose 96 mg/dL (70-100) 08/09/18 19:34 Calcium 9.2 mg/dL (8.6-10.3) 08/09/18 19:34 25-OH Vitamin D Total 17.5 ng/mL (20-50) L 08/09/18 19:34 Urine Color Yellow 08/11/18 12:12 Urine Appearance Clear 08/11/18 12:12 Urine pH 7.0 (5-9) 08/11/18 12:12 Ur Specific [place] 1.010 (1.010-1.030) 08/11/18 12:12 Urine Protein Negative (Negative) 08/11/18 12:12 Urine Ketones Negative (Negative) 08/11/18 12:12 Urine Blood 1+ (Negative) A 08/11/18 12:12 Urine Nitrate Negative (Negative) 08/11/18 12:12 Urine Bilirubin Negative (Negative) 08/11/18 12:12 Urine Urobilinogen Negative (Negative) 08/11/18 12:12 Ur Leukocyte Esterase 2+ (Negative) A 08/11/18 12:12 Urine WBC (Auto) 2+(11-20/hpf) (Absent) A 08/11/18 12:12 Urine RBC (Auto) 2+(6-10/hpf) (Absent) A 08/11/18 12:12 Ur Squamous Epith Cells Present (Absent) A 08/11/18 12:12 Urine Bacteria Absent (Absent) 08/11/18 12:12 Urine Glucose Negative (Negative) 08/11/18 12:12 incision: c/d PE: intact sensation, able to dorsi flex/plantar flex, 2+ DP pulse Assessment: s/p ORIF left tibial plateau fracture Plan: 1) DVT prophylaxis x 4 weeks 2) PT/OT- NWB LLE with leg in extension, TTWB for transfers only 3) home today, F/U with Carrillo in 7-10 days
[2018-08-13] MEDS: Cholecalciferol TAB* 1000 UNITS PO SCH (08:52)
[2018-08-13] MEDS: oxyCODONE/Acetamin 5/325 MG* TAB PO PRN ×2 (08:53→12:50)
[2018-08-13] MEDS: Docusate CAP* 100 MG PO SCH (08:53)
[2018-08-13] MEDS: Enoxaparin(*) 40 MG/0.4 ML SYR SUBCUT SCH (08:54)
[2018-08-13] MEDS: Magnesium Hydroxide LIQ* 30 ML UDC PO SCH (08:54)
[2018-08-13 09:24] VITALS: BP 140/72
--- NOTE | 2018-08-13 12:19 | DS ---
DISCHARGE SUMMARY: DATE OF ADMISSION: 08/09/18 DATE OF DISCHARGE: 08/13/18 ATTENDING PHYSICIAN: Dr. Williams Vizcaino* (dictated by ALHAJI Leo). PRINCIPAL DIAGNOSIS: Left knee tibial plateau fracture. DISCHARGE DIAGNOSIS: Left knee tibial plateau fracture. DISCHARGE DISPOSITION: Stable, good condition. HISTORY OF PRESENT ILLNESS: Ms. Olvera is a 63-year-old female who suffered a left tibial plateau fracture, was admitted to the hospital on 08/09/18 and underwent an ORIF of the left tibial plateau. HOSPITAL COURSE: Ms. Olvrea was admitted on 08/09/18 and underwent an ORIF of the left tibial plateau fracture with a lateral locking plate. She tolerated the procedure well. Postoperatively, she was placed on Lovenox for DVT prophylaxis. On postoperative day #1, she did well with physical therapy. She remained nonweightbearing with the leg in extension and did well with transfers. Her vital signs were stable throughout her hospital stay and she was discharged home on 08/13/18. DISCHARGE MEDICATIONS: 1. Lovenox 40 mg subcu daily for 30 days. 2. Colace 100 mg tab 2 to 3 daily as needed for constipation. 3. Percocet 5/325 every 4 hours as needed for pain with an MDD of 6. 4. Calcium 1200 mg a day. PHYSICAL EXAMINATION: Upon discharge, she was afebrile. Her vital signs were stable. Her wound was clean and dry. She was able to dorsiflex and plantarflex. She had 2+ dorsalis pedis pulse and intact sensation. DISCHARGE INSTRUCTIONS: She was discharged to home in stable condition. She was given Percocet every 4 hours for pain, Colace as needed for constipation, and Lovenox 40 mg subcu daily for DVT prophylaxis, should use this for a month. She will remain nonweightbearing of her left lower extremity. She can touch toe weight bear for transfers only and she is able to flex her knee to 90 degrees. She can start taking a shower tomorrow letting soap and water run over the incision, pat the area dry, and rewrap with a clean sterile [place]. She was provided VNS and home physical therapy services and she will follow up with Dr. Vizcaino in his clinic in 10 days. ALHAJI LEO [id number]/[facility] #: [id number] FABRIZIO
== END 2018-08-13 13:00 | disposition home or self-care (01) | DRG 313 ==
LOC: ED 11:49 → SSU 17:23 → OBSVTOIN 08-11 16:00
PROVIDERS: ADMIT Orthopaedic Surgery; ATTEND Orthopaedic Surgery
PROC: 0QSH04Z Reposition Left Tibia with Internal Fixation Device, Open Approach (ICD-10-PCS; principal; 2018-08-10 07:30)
DX: S82.142A Displaced bicondylar fracture of left tibia, initial encounter for closed fracture (principal); M85.839 Other specified disorders of bone density and structure, unspecified forearm; M54.5 Low back pain; F17.210 Nicotine dependence, cigarettes, uncomplicated; M21.062 Valgus deformity, not elsewhere classified, left knee; M81.0 Age-related osteoporosis without current pathological fracture; E78.5 Hyperlipidemia, unspecified; Z87.442 Personal history of urinary calculi; Y92.009 Unspecified place in unspecified non-institutional (private) residence as the place of occurrence of the external cause; Z86.718 Personal history of other venous thrombosis and embolism; Z98.51 Tubal ligation status; Z83.79 Family history of other diseases of the digestive system; W54.1XXA Struck by dog, initial encounter; Z80.0 Family history of malignant neoplasm of digestive organs; Z90.710 Acquired absence of both cervix and uterus; Z82.49 Family history of ischemic heart disease and other diseases of the circulatory system; Z72.89 Other problems related to lifestyle
CPT/HCPCS: 36415; 76000; 80048; 81003; 81015; 82306; 85025; 87086; 93005; 99284; A9270-GY; G0378; J0690; J1100; J1240; J1650; J1885; J2250; J2270; J2704; J3010

== ENCOUNTER 2018-12-25 12:00 | Emergency (ER) | payer BC ==
--- NOTE | 2018-12-25 14:23 | ED ---
Lower Extremity - HPI Summary HPI Summary: Pt is a 63 y/o F presenting to the ED for a chief complaint of left LE edema and myalgia. Pt complains of soreness in the left LE, fatigue, and fever for the last 2 days. Pt denies dysuria, abdominal pain, or cough. Pt reports that she had surgery on the left leg in July 2018. Pt sees her orthopedic surgeon, Dr. Vizcaino, who found that the pt had several blood clots in the left leg and pt was given Eliquis which she has taken for one month. Pt has a PSHx of vein stripping surgery. Pt denies tobacco use. Pt admits FMHx of HTN, but denies FMHx of DM. Pt denies any other PMHx. - History of Current Complaint Chief Complaint: EDExtremityLower Stated Complaint: FEVER/LEG PAIN PER PT Time Seen by Provider: 12/25/18 14:11 Hx Obtained From: Patient Severity Initially: Mild Severity Currently: Mild Pain Intensity: 2 Pain Scale Used: 0-10 Numeric Timing: Lasting Days Location: Is Discrete @ - Left LE - Allergies/Home Medications Allergies/Adverse Reactions: Allergies Allergy/AdvReac Type Severity Reaction Status Date / Time No Known Allergies Allergy Verified 12/25/18 12:05 Home Medications: Home Medications Acetaminophen TAB* [Tylenol TAB*] 325 mg PO Q4H PRN 12/25/18 [History Confirmed 12/25/18] Apixaban* [Eliquis*] 5 mg PO BID 12/25/18 [History Confirmed 12/25/18] Calcium Carbonate [Calcium] 500 mg PO DAILY 12/25/18 [History Confirmed 12/25/18 ] PMH/Surg Hx/FS Hx/Imm Hx Previously Healthy: Yes Endocrine/Hematology History: Denies: Hx Anticoagulant Therapy, Hx Diabetes, Hx Systemic Lupus Erythematosus, Hx Thyroid Disease, Hx Anemia, Hx Unexplained Bleeding Cardiovascular History: Reports: Hx Hypercholesterolemia, Hx Peripheral Vascular Disease - vein stripping bilateral legs Denies: Hx Angina, Hx Cardiac Arrest, Hx Congestive Heart Failure, Hx Coronary Artery Disease, Hx Deep Vein Thrombosis, Hx Hypertension, Hx Rheumatic Fever, Hx Syncope, Hx Valvular Heart Disease Respiratory History: Denies: Hx Asthma, Hx Chronic Bronchitis, Hx Chronic Obstructive Pulmonary Disease (COPD), Hx Lung Cancer, Hx Pneumonia, Hx Pulmonary Edema, Hx Pulmonary Embolism, Hx Seasonal Allergies, Hx Sleep Apnea GI History: Denies: Hx Cirrhosis, Hx Crohn's Disease, Hx Diverticulosis, Hx Gall Bladder Disease, Hx Gastroesophageal Reflux Disease, Hx Hiatal Hernia, Hx Irritable Bowel, Hx Ulcer History: Reports: Hx Kidney Stones Denies: Hx Kidney Infection Musculoskeletal History: Reports: Hx Orthopedic Injury - bilat knees dislocated ; current fx L. lateral tibial plateau, Other Musculoskeletal History - bilateral dislocated knees Denies: Hx Arthritis, Hx Bursitis, Hx Osteoporosis, Hx Scoliosis, Hx Tendonitis Sensory History: Reports: Hx Contacts or Glasses Denies: Hx Cataracts, Hx Glaucoma, Hx Hearing Aid, Hx Hearing Problem Opthamlomology History: Reports: Hx Contacts or Glasses Denies: Hx Cataracts, Hx Glaucoma - Cancer History Hx Chemotherapy: No Hx Radiation Therapy: No - Surgical History Surgical History: Yes Surgery Procedure, Year, and Place: hysterectomy; vein stripping left leg (x2, once unsuccesfully), inguinal hernia repair, uterine prolapse & repair, pessary Hx Anesthesia Reactions: No Infectious Disease History: No Infectious Disease History: Denies: Hx Clostridium Difficile, Hx Hepatitis, Hx Human Immunodeficiency Virus (HIV), Hx of Known/Suspected MRSA, Hx Shingles, Hx Tuberculosis, Hx Known/ Suspected VRE, Hx Known/Suspected VRSA, History Other Infectious Disease, Traveled Outside the [place] in Last 30 Days - Family History Known Family History: Positive: Hypertension Negative: Diabetes, Renal Disease, Respiratory Disease, Seizure Disorder - Social History Alcohol Use: Occasionally Hx Substance Use: No Substance Use Type: Reports: None Hx Tobacco Use: Yes Smoking Status (MU): Current Some Day Smoker Type: Cigarettes Amount Used/How Often: 10 cigs per week Review of Systems Positive: Fever, Fatigue Negative: Cough Negative: Abdominal Pain Negative: dysuria Positive: Myalgia - Left LE, Edema - Left LE, Other - Soreness in the left LE All Other Systems Reviewed And Are Negative: Yes Physical Exam - Summary Physical Exam Summary: Constitutional: Well-developed, Well-nourished, Alert. (-) Distressed Skin: Warm, Dry, no rashes HENT: Normocephalic; Atraumatic Eyes: Conjunctiva normal Neck: Musculoskeletal ROM normal neck. (-) JVD, (-) Stridor, (-) Nuchal rigidity Cardio: Rhythm regular, rate normal, Heart sounds normal; Intact distal pulses; Radial pulses are 2+ and symmetric. (-) Murmur Pulmonary/Chest wall: Effort normal. (-) Respiratory distress, (-) Wheezes, (-) Rales Abd: Soft, (-) tenderness, (-) Distension, (-) Guarding, (-) Rebound Musculoskeletal: 2+ non-pitting edema in left LE up to the left knee with residual post surgical changes. ROM intact in knee, no erythema or swelling. 2+ DP pulse Lymph: (-) Cervical adenopathy Neuro: Alert, Oriented x3 Psych: Mood and affect Normal Triage Information Reviewed: Yes Vital Signs On Initial Exam: Initial Vitals Temp Pulse Resp BP Pulse Ox 100.4 F 85 14 146/85 99 12/25/18 12:02 12/25/18 12:02 12/25/18 12:02 12/25/18 12:02 12/25/18 12:02 Vital Signs Reviewed: Yes Procedures - Sedation Patient Received Moderate/Deep Sedation with Procedure: No Diagnostics - Vital Signs Vital Signs Temp Pulse Resp BP Pulse Ox 12/25/18 13:37 100.4 F 80 16 146/83 98 12/25/18 12:02 100.4 F 85 14 146/85 99 - Laboratory Result Diagrams: 12/25/18 14:30 12/25/18 14:30 Lab Statement: Any lab studies that have been ordered have been reviewed, and results considered in the medical decision making process. - Radiology Venous Doppler Study Radiology Interpretation Completed By: Radiologist Summary of Radiographic Findings: Venous Doppler Study IMPRESSION: DEEP VENOUS THROMBOSIS INVOLVING THE POPLITEAL VEIN AND EXTENDING TO ONE OF THE PAIRED POSTERIOR TIBIAL VEINS AND ONE OF THE PAIRED PERONEAL VEINS. Reviewed by ED physician. Re-Evaluation - Re-Evaluation 1st re-eval Re-Evaluation Time: 15:42 Comment: 1st re-eval: Previous DVT US in October showed DVT of the posterior tibial and peroneal veins. Todays shows a DVT of popliteal vein. Lower Extremity Course/Dx - Course Course Of Treatment: 63 y/o F with hx DVT in LLE on eliquis p/w leg pain and fever at home. - no other infectious symptoms, no rashes to LE. Able to range knee, no effusions or erythema. No cough, headaches, URI symptoms, GI symptoms. - PE w edema to LLE, DVT US w + popliteal DVT not previously noted on October. 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 Given first dose of lovenox in ED. - Diagnoses Provider Diagnoses: DVT (deep venous thrombosis) Discharge ED - Sign-Out/Discharge Documenting (check all that apply): Patient Departure - Discharge - Discharge Plan Condition: Stable Disposition: HOME Prescriptions: Enoxaparin(*) [Lovenox(*)] 100 mg SUBCUT Q24HR 14 Days #1 syringe Patient Education Materials: Deep Vein Thrombosis (ED) Referrals: Aubree Love [Primary Care Provider] - Additional Instructions: You were seen in the emergency department for left leg swelling and pain. Your US showed deep vein thrombosis. Please STOP eliquis, start taking lovenox once per day. If any studies were not completed at the time of discharge you will be called with the relevant results. Please follow up with your primary care doctor in the next 2-3 days and outpatient hematology. Return to the emergency department for worsening or concerning symptoms. It was a pleasure taking care of you today. - Billing Disposition and Condition Condition: STABLE Disposition: Home - Attestation Statements Document Initiated by Parker: Yes Documenting Scribe: Janay Villatoro Provider For Whom Parker is Documenting (Include Credential): Fran Webber MD Scribe Attestation: I, Janay Villatoro, scribed for Fran Webber MD on 12/25/18 at 2042. Scribe Documentation Reviewed: Yes Provider Attestation: The documentation as recorded by the Janay jasos accurately reflects the service I personally performed and the decisions made by me, Fran Webber MD Status of Scribe Document: Viewed Consult Consult: At 15:48, I spoke with Dr. Patton to discuss Eliquis failure. Dr. Patton recommends Lovenox 1.5 mg/kg daily. Follow-up with primary care physician and outpatient hematology.
[2018-12-25 14:44] LABS: ABS Lymphocytes 0.7 10^3/ul (1.0-4.8); ABS Monocytes 0.8 10^3/ul (0-0.8); ABS Neutrophils 5.6 10^3/ul (1.5-7.7); Eosinophil % 0.4 %; Hematocrit 38 % (35-47); Hemoglobin 12.6 g/dL (12.0-16.0); Lymphocyte % 9.4 %; Mean Corpuscular HGB Conc 33 g/dL (31-36); Mean Corpuscular Hemoglobin 29 pg (27-31); Mean Corpuscular Volume 88 fL (80-97); Mean Platelet Volume 8.6 fL (7.4-10.4); Platelet Count 122 10^3/uL (150-450); Red Blood Count 4.33 10^6 /uL (3.70-4.87); Red Cell Distribution Width 15 % (10-15); White Blood Count 7.1 10^3/uL (3.5-10.8)
[2018-12-25 14:53] LABS: INR 1.4 (0.82-1.09)
[2018-12-25 15:19] LABS: Albumin 4.1 g/dL (3.2-5.2); Albumin/Globulin Ratio 1.5 (1-3); BUN/Creatinine Ratio 13.3 (8-20); Calcium 9.2 mg/dL (8.6-10.3); EGFR African American 84.3 (>60); EGFR Non-African American 69.7 (>60); Globulin 2.7 g/dL (2-4); Potassium 3.8 mmol/L (3.5-5.0); Total Protein 6.8 g/dL (6.4-8.9)
[2018-12-25] MEDS ORDERED: Enoxaparin(*) 100 MG/ML SYR SUBCUT ONE (15:57)
[2018-12-25 16:35] VITALS: BP 140/69
== END 2018-12-25 16:38 | disposition home or self-care (01) ==
LOC: ED 12:00
DX: I82.409 Acute embolism and thrombosis of unspecified deep veins of unspecified lower extremity (principal); R60.9 Edema, unspecified; R50.9 Fever, unspecified; Z79.899 Other long term (current) drug therapy; E78.00 Pure hypercholesterolemia, unspecified; I87.8 Other specified disorders of veins; Z87.442 Personal history of urinary calculi; Z72.0 Tobacco use; Z79.01 Long term (current) use of anticoagulants; Z86.718 Personal history of other venous thrombosis and embolism
CPT/HCPCS: 36415; 80053; 85025; 85610; 96372; 99282; J1650

== ENCOUNTER 2019-04-25 06:50 | Day surgery (SDC) | payer BC ==
[~2019-04-25 06:50] MED LIST: Buffered Lidocaine 1% SYRIN* 1 ML/SYRINGE INTRADERM ONE; Lactated Ringers 1000 ML Bag* 1,000 ML IV SCH
[2019-04-25] MEDS ORDERED: Lidocaine 2.5%/Prilocain 2.5%* 5 GM TUBE ONE (07:42)
[2019-04-25] MEDS ORDERED: Buffered Lidocaine 1% SYRIN* 1 ML/SYRINGE INTRADERM ONE (07:42)
[2019-04-25] MEDS ORDERED: Ondansetron INJ* 2 MG/ML VIAL IV PRN (09:48)
[2019-04-25] MEDS ORDERED: Naloxone* 0.4 MG/ML 1 ML VIAL IV PRN (09:48)
[2019-04-25] MEDS ORDERED: HYDROmorphone INJ1* 1 MG/ML SYRINGE IV PRN (09:48)
[2019-04-25] MEDS ORDERED: Lidocaine 1% INJ* 10 MG/ML 30 ML SDV ONE (11:39)
[2019-04-25] MEDS ORDERED: Bupivacaine 0.5%* 50 ML MDV VIAL ONE (11:39)
[2019-04-25] MEDS ORDERED: ceFAZolin 2 GM PREMIX in ORs 2 GM/50 ML BAG ONE (11:51)
[2019-04-25] MEDS ORDERED: HYDROmorphone INJ1* 1 MG/ML SYRINGE ONE ×2 (11:57→14:18)
[2019-04-25] MEDS ORDERED: Propofol* 10 MG/ML 20 ML BTL ONE (11:57)
[2019-04-25] MEDS ORDERED: EPHEDrine (Pressors)* 50 MG/ML VIAL ONE (12:30)
[2019-04-25] MEDS ORDERED: Dexamethasone IV* 4 MG/ML 1 ML (4 MG) ONE (13:16)
[2019-04-25] MEDS ORDERED: Ketorolac INJ* 30 MG/ML 1 ML VIAL ONE (13:16)
[2019-04-25] MEDS ORDERED: Ondansetron INJ* 2 MG/ML VIAL ONE (13:40)
[2019-04-25 14:31] VITALS: BP 145/77
--- NOTE | 2019-04-26 00:23 | OP ---
CC: Dr. Joaquim Campbell * DATE OF OPERATION: 04/25/19 - SDS DATE OF : 57 SERVICE: General Surgery. ATTENDING SURGEON: Luz Jon MD [id number] DEVELOPER: Gail Norman NP ANESTHESIOLOGIST: Dr. Alex Zaldivar. ANESTHESIA: LMA anesthesia. 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 POST-OP DIAGNOSIS: Left breast ductal carcinoma in situ. OPERATIVE PROCEDURE: Left breast needle-localized lumpectomy. SPECIMEN: Left breast lumpectomy. ESTIMATED BLOOD LOSS: Minimal, less than 10 cc. INDICATIONS FOR SURGERY: Ms. Olvera is a very pleasant 63-year-old female who was found to have a mammographic abnormality on a recent screening mammogram. She underwent a core needle biopsy, which identified ductal carcinoma in situ. She therefore gave informed consent for a left breast needle-localized lumpectomy. She understood that the risks include, but were not limited to bleeding, infection, injury to nearby structures, and the possibility of reexcision based on her final pathology. She understood the alternatives and benefits as well and she wished to proceed. DESCRIPTION OF PROCEDURE: The patient was brought back to the operating room and placed on the operating room table in a supine position. Sequential compression devices were placed on the bilateral lower extremities for DVT prophylaxis. Antibiotics were administered. LMA anesthesia was induced. The patient's left breast was prepped and draped in a normal sterile fashion. The wire that had been previously placed by Radiology was emanating from the lower inner quadrant. It was cut down to approximately 1 inch outside of the skin. Her localization imaging studies had been reviewed. Next, a time-out was performed verifying the patient's name, date of , and the procedure to be performed. Local anesthesia consisting of 0.25% Marcaine and 1% lidocaine mixed was infiltrated into the left breast around the location of the wire. Next, a curvilinear incision was made surrounding the wire to incorporate the wire itself. This was made in the inframammary fold. The skin was divided down through the subcutaneous tissue and then after this, a cone of tissue surrounding the wire was divided directed medially in the direction of the wire. This entire lumpectomy specimen was then removed from the breast cavity and it was marked with the usual markings with a short suture at the superior pole, a medium length suture at the medial pole, and a long suture of the lateral pole. It was carried off to the table and sent down to Radiology where on mammogram was confirmed that the specimen wire and the abnormality was located within the specimen. Next, hemostasis was obtained in the breast cavity. The breast cavity was also irrigated using normal saline and the borders of the cavity were also marked with medium clips. Interrupted 3-0 Vicryl sutures were used to close the dermis and a running 4-0 Monocryl was used to close the skin. Sterile dressing was then placed. The patient was awoken from anesthesia and she was taken to the PACU in stable condition. At the end of the case, all counts were correct and I was present during the entirety of the case. [id number]/[facility] #: [id number] [facility] CENTERJairo
== END 2019-04-25 14:40 | disposition home or self-care (01) ==
LOC: SDS 06:50
PROVIDERS: ATTEND Surgery
DX: D05.92 Unspecified type of carcinoma in situ of left breast (principal); Z87.891 Personal history of nicotine dependence; M81.0 Age-related osteoporosis without current pathological fracture; E78.00 Pure hypercholesterolemia, unspecified
CPT/HCPCS: 88307; A9270-GY; J0690; J1100; J1170; J1885; J2405; J2704; J3490